=== PATIENT | female | born 1965 ===

== ENCOUNTER 2021-04-26 08:20 | Outpatient (REF) | payer OTHER, MEDICAID, SELFPAY ==
--- NOTE | ~2021-04-26 | XR_ITS ---
EXAMINATION: XR PELVIS CLINICAL INFORMATION: Hip pain. COMPARISON: None TECHNIQUE: AP view of the pelvis. FINDINGS: Severe left hip arthritis, marked joint space loss, osteophytes, sclerosis and cysts. No acute fracture or dislocation is seen. Right hip joint space is maintained. No acute pelvic fractures identified. SI joints and symphysis pubis are intact. XR/XR pelvis 1-2V IMPRESSION: Severe left hip arthritis.
== END 2021-04-26 08:21 | disposition home or self-care (01) ==
LOC: HO.HOSX 08:20
PROVIDERS: Visit Provider Orthopaedic Surgery
DX: M16.12 Unilateral primary osteoarthritis, left hip (principal); F19.11 Other psychoactive substance abuse, in remission
CPT/HCPCS: 72170